=== PATIENT | female | born 1960 | race Caucasian/White ===

== ENCOUNTER → 2020-07-18 | Outpatient (CLI) | payer OTHER ==
[~2020-07-18] MED LIST: ALPR0.5T6 PO; ATOR10TA60 PO; BIOT1CAP3 PO; EMPA1TAB PO; ESCITALOPRAM OX10 MG PO; LISI-130 PO; OXYC1TAB15 PO; PROM25TA10 PO
--- NOTE | 2020-07-18 18:03 | KCIC ---
EXAM: MRI LEFT SHOULDER WITHOUT CONTRAST INDICATION: Left shoulder pain, fell 2 weeks ago COMPARISON: None TECHNIQUE: Multiplanar, multisequence imaging of the left shoulder Without contrast. FINDINGS: ROTATOR CUFF: There is a full-thickness tear of the anterior mid supraspinatus tendon measuring 1.5 x 2.2 cm chronic by sagittal. Tendinopathy of the infraspinatus tendon. There is a deep partial-thickness tear of the cranial subscapularis tendon. Teres minor tendon is intact. No rotator cuff muscle atrophy or edema. LABRUM: Degenerative superior labral tearing.. BICEPS TENDON: Biceps tendon is subluxed medially and perched on the bicipital groove with a longitudinal split tear.. ACROMIOCLAVICULAR JOINT: Moderate acromioclavicular degenerative joint disease with subchondral edema and small osteophytes. Type III acromion. GLENOHUMERAL JOINT: Scattered superficial cartilage loss. No full-thickness defect. There is marrow edema in the greater tuberosity at the supraspinatus footprint. No acute fracture. Alignment is normal.. OTHER: There is a joint effusion communicating with the subacromial-subdeltoid bursa.. IMPRESSION: 1. Full-thickness tear of the supraspinatus tendon measuring 2.2 cm in greatest diameter. Tendinopathy of the infraspinatus tendon. 2. Deep partial-thickness tear of cranial subscapularis tendon. Medial subluxation and longitudinal split tear of the biceps tendon. 3. Moderate acromial clavicular degenerative joint disease. 4. Small joint effusion. Electronically signed by: Donna Pérez MD (07/18/2020 6:00 PM) [id number]
== END ==
LOC: KCIC MRI 12:23
PROVIDERS: ATTEND Orthopaedic Surgery
DX: S46.912A Strain of unspecified muscle, fascia and tendon at shoulder and upper arm level, left arm, initial encounter (principal); M19.012 Primary osteoarthritis, left shoulder; M25.412 Effusion, left shoulder; X58.XXXA Exposure to other specified factors, initial encounter; Y93.89 Activity, other specified; Y92.89 Other specified places as the place of occurrence of the external cause; Y99.8 Other external cause status
CPT/HCPCS: 73221

== ENCOUNTER → 2020-07-23 | Outpatient (CLI) | payer OTHER | LOC: LAB 09:54 | PROVIDERS: ATTEND Orthopaedic Surgery | DX: Z01.812 Encounter for preprocedural laboratory examination (principal); Z20.828 Contact with and (suspected) exposure to other viral communicable diseases | CPT/HCPCS: U0003 ==

== ENCOUNTER 2020-07-25 06:04 | Day surgery (SDC) | payer OTHER ==
[~2020-07-25] VITALS: Ht 157.5 cm; Wt 62.6 kg
[~2020-07-25 06:04] MED LIST changes: +BUPIVACAINE-EPI 0.25%-1:200000 MPF 30 ML VIAL. INJ ONE; -OXYC1TAB15 PO; -PROM25TA10 PO
[2020-07-25] MEDS: INSULIN LISPRO 100 UNIT/ML 3ML VIAL for OP,RR ONLY. SQ PRN ×2 (06:42→10:12)
[2020-07-25] MEDS ORDERED: HYDROmorphone 2 MG/ML VIAL IV PRN (07:00)
[2020-07-25] MEDS ORDERED: fentaNYL PF VIAL 100 MCG/2 ML VIAL IV PRN (07:00)
[2020-07-25] MEDS ORDERED: PROCHLORPERAZINE 10 MG/2 ML VIAL. IV PRN (07:00)
[2020-07-25] MEDS ORDERED: ONDANSETRON PF 4 MG/2 ML VIAL. IV PRN (07:00)
[2020-07-25] MEDS ORDERED: IV RINGERS,LACTATED 1000ML 1,000 ML IV SCH (07:00)
[2020-07-25] MEDS ORDERED: MORPHINE SULFATE 2 MG/ML VIAL. IV PRN (07:00)
[2020-07-25] MEDS ORDERED: ROCURONIUM 50 MG/5 ML VIAL. ONE (07:02)
[2020-07-25] MEDS ORDERED: ONDANSETRON PF 4 MG/2 ML VIAL. ONE (07:03)
[2020-07-25] MEDS ORDERED: fentaNYL PF VIAL 250 MCG/5 ML VIAL ONE (07:03)
[2020-07-25] MEDS ORDERED: PROPOFOL 10 MG/ML (20ML) VIAL. IV ONE (07:03)
[2020-07-25] MEDS ORDERED: DEXAMETHASONE SOD PHOS 4 MG/ML VIAL ONE (07:03)
[2020-07-25] MEDS ORDERED: SEVOFLURANE > 120 MINUTES. IH ONE ×2 (07:03→08:23)
[2020-07-25] MEDS ORDERED: LIDOCAINE 2% PF 5 ML VIAL. ONE (07:03)
[2020-07-25] MEDS ORDERED: EPINEPHrine VIAL 30 MG/30 ML VIAL ONE (07:06)
[2020-07-25] MEDS ORDERED: GLYCOPYRROLATE 1 MG/5 ML VIAL. ONE (08:40)
[2020-07-25] MEDS ORDERED: BUPIVACAINE-EPI 0.25%-1:200000 MPF 30 ML VIAL. INJ ONE (08:40)
[2020-07-25] MEDS ORDERED: NEOSTIGMINE METHYLSULFATE 5 MG/5 ML SYRINGE. ONE (08:40)
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
[2020-07-25] MEDS ORDERED: INSULIN LISPRO 100 UNIT/ML 3ML VIAL for OP,RR ONLY. SQ ONE ×2 (10:15)
[2020-07-25] MEDS ORDERED: OXYC1TAB15 PO (10:21)
[2020-07-25] MEDS ORDERED: PROM25TA10 PO (10:22)
[2020-07-25] MEDS ORDERED: PROCHLORPERAZINE 10 MG/2 ML VIAL. ONE (10:27)
[2020-07-25] MEDS ORDERED: fentaNYL PF VIAL 100 MCG/2 ML VIAL ONE (10:28)
[2020-07-25] MEDS ORDERED: oxyCODONE/APAP 5/325 1 TAB TABLET PO ONE (10:30)
[2020-07-25] MEDS ORDERED: oxyCODONE/APAP 5/325 1 TAB TABLET PO PRN ×2 (10:30→11:20)
[2020-07-25] MEDS: fentaNYL PF VIAL 100 MCG/2 ML VIAL IV PRN ×2 (10:32→11:23)
[2020-07-25 11:54] VITALS: BP 134/47
== END 2020-07-25 12:42 | disposition home or self-care (01) ==
LOC: SURG 06:04
PROVIDERS: ATTEND Orthopaedic Surgery
DX: S46.012A Strain of muscle(s) and tendon(s) of the rotator cuff of left shoulder, initial encounter (principal); M67.813 Other specified disorders of tendon, right shoulder; M19.012 Primary osteoarthritis, left shoulder; M75.42 Impingement syndrome of left shoulder; I10 Essential (primary) hypertension; E78.00 Pure hypercholesterolemia, unspecified; E11.9 Type 2 diabetes mellitus without complications; F41.9 Anxiety disorder, unspecified; Z79.82 Long term (current) use of aspirin; Z79.84 Long term (current) use of oral hypoglycemic drugs; Z79.899 Other long term (current) drug therapy; Z98.890 Other specified postprocedural states; Z88.6 Allergy status to analgesic agent; Z88.8 Allergy status to other drugs, medicaments and biological substances; Z72.89 Other problems related to lifestyle; X58.XXXA Exposure to other specified factors, initial encounter; Y93.89 Activity, other specified; Y92.89 Other specified places as the place of occurrence of the external cause; Y99.8 Other external cause status
CPT/HCPCS: 23410; 23430; 29824; 29826; 82962; C1713; J0171; J0690; J0780; J1100; J1815; J2405; J2704; J2710; J3010; J3490